=== PATIENT | male | born 1985 | race Caucasian/White ===

== ENCOUNTER 2020-10-13 15:13 | Emergency (ER) | payer SELFPAY ==
[~2020-10-13] VITALS: Ht 187.9 cm; Wt 129.3 kg
[2020-10-13] MEDS ORDERED: CEPHALEXIN500 M1 PO (17:45)
== END 2020-10-13 17:53 | disposition home or self-care (01) ==
LOC: ED 15:13
DX: L03.115 Cellulitis of right lower limb (principal); E66.9 Obesity, unspecified